=== PATIENT | female | born 1930 | race Two or more races ===

== ENCOUNTER 2020-04-24 11:45 | Inpatient (IN) | payer OTHER ==
[~2020-04-24] VITALS: Ht 167.6 cm; Wt 106.0 kg
[2020-04-24] MEDS: SOD CHL 0.9%/ KCL 20MEQ 1,000 ML IV SCH (04:20)
[2020-04-24] MEDS ORDERED: ACETAMINOPHEN 325 MG TAB PO ONE (12:15)
[2020-04-24 13:13] LABS: Basophils # (auto) 0 10 ^3/uL (0-0.2); Basophils % (auto) 0.3 % (0.0-2.0); Eosinophils # (auto) 0 10 ^3/uL (0-0.8); Hematocrit 35.1 % (36.0-46.0); Hemoglobin 11.7 g/dL (12.2-16.2); Lymphocytes # (auto) 0.3 10 ^3/uL (0.4-5.4); Lymphocytes % (auto) 5.8 % (10.0-50.0); Mean Corpuscular Hemoglobin 32.1 pg (28.0-32.0); Mean Corpuscular Hgb Conc. 33.4 g/dL (32.0-36.0); Mean Corpuscular Volume 96.2 fL (80.0-100.0); Monocytes # (auto) 0.6 10 ^3/uL (0-1.3); Monocytes % (auto) 11.7 % (0.0-12.0); Neutrophils # (auto) 4.3 10 ^3/uL (1.6-8.6); Neutrophils % (auto) 82.2 % (37.0-80.0); Platelet Count (auto) 143 10^3/uL (140-450); Red Blood Cells 3.65 10^6/uL (4.0-5.20); Red Cell Distribution Width 16.3 % (11.8-14.3); White Blood Cell 5.2 10^3/uL (4.4-10.8)
[2020-04-24 13:46] LABS: Alanine Aminotransferase 19 U/L (13-56); Albumin 2.9 g/dL (3.4-5.0); Anion Gap 8 (5-15); Aspartate Aminotransferase 33 U/L (15-37); BUN/Creatinine Ratio 19.4; Bilirubin, Total 0.5 mg/dL (0.2-1.0); Blood Urea Nitrogen 18 mg/dL (7-18); Calcium 8.1 mg/dL (8.5-10.1); Carbon Dioxide 27 mmol/L (21-32); Chloride 103 mmol/L (98-107); GFR African American 73 mL/min; GFR Non-African American 60 mL/min; Glucose 86 mg/dL (74-106); Potassium 3.4 mmol/L (3.5-5.1); Sodium 138 mmol/L (136-145); Total Protein 7.1 g/dL (6.4-8.2)
[2020-04-24 13:59] LABS: Alkaline Phosphatase 64 U/L (45-117); CRP High Sensitivity 9.65 mg/dL (< 0.3)
[2020-04-24] MEDS ORDERED: INFLUENZA QUAD 2020-2021 0.5 ML SYRG IM ONE (15:00)
[2020-04-24] MEDS ORDERED: DOXYCYCLINE 100MG/250ML 250 ML IV ONE (15:00)
[2020-04-24] MEDS ORDERED: DOCUSATE SOD 100 MG CAP PO PRN (15:00)
[2020-04-24] MEDS ORDERED: ONDANSETRON HCL 4 MG/2 ML VIAL IV PRN (15:00)
[2020-04-24] MEDS ORDERED: PNEUMOCOCCAL VACC POLYS 25 MCG/0.5 ML VIAL IM ONE (15:00)
[2020-04-24] MEDS ORDERED: NITROGLYCERIN 0.4 MG SL TAB SL PRN (15:00)
[2020-04-24] MEDS ORDERED: ACETAMINOPHEN 500 MG TAB PO PRN (15:00)
[2020-04-24] MEDS ORDERED: ACETAMINOPHEN 325 MG TAB PO PRN (15:00)
[2020-04-24] MEDS ORDERED: ZINC SULFATE 220mg CAP or TAB PO ONE (15:00)
[2020-04-24] MEDS ORDERED: DexAMETHasone SOD PHOS 10MG/1ML VIAL INJ IV ONE (15:00)
[2020-04-24] MEDS ORDERED: ALUM & MAG HYDROX-SIMETH LIQ(MAALOX) 30 ML PO PRN (15:00)
[2020-04-24] MEDS ORDERED: LORazepam 0.5 MG TAB PO PRN (15:00)
[2020-04-24] MEDS ORDERED: ASCORBIC ACID 500 MG TAB PO ONE (15:00)
[2020-04-24] MEDS ORDERED: MORPHINE SULF INJ 2 MG/ML SYRINGE 1ML IV PRN (15:00)
[2020-04-24 16:05] LABS: Cholesterol 159 mg/dL (< 200); LDL Cholesterol 89 mg/dL (< 100); Triglycerides 119 mg/dL (< 150)
[2020-04-24 16:10] LABS: HDL Cholesterol 50 mg/dL (40-59)
[2020-04-24] MEDS ORDERED: METHOTREXATE 2.5 MG TAB PO SCH (16:15)
[2020-04-24 16:55] LABS: Magnesium 2.5 mg/dL (1.6-2.6)
[2020-04-24] MEDS ORDERED: PROM1SOL2 PO (17:46)
[2020-04-24] MEDS ORDERED: AZIT250T9 PO (17:46)
[2020-04-24] MEDS ORDERED: ALBUAER3 IN (17:46)
[2020-04-24] MEDS ORDERED: LEUC10TA2 PO (17:46)
[2020-04-24] MEDS ORDERED: PRED20TA2 PO (17:46)
[2020-04-24] MEDS ORDERED: GABA300C10 PO (17:46)
[2020-04-24] MEDS ORDERED: METH2.5T PO (17:46)
[2020-04-24] MEDS ORDERED: PANT40TA2 PO (17:46)
[2020-04-24] MEDS ORDERED: OXYB5TAB61 PO (17:46)
[2020-04-24] MEDS ORDERED: FOLI1TAB6 PO (17:46)
[2020-04-24] MEDS ORDERED: FOLIC ACID 1 MG TAB PO ONE (18:00)
[2020-04-24] MEDS ORDERED: POTASSIUM CHL 20MEQ/100ML 100 ML IV ONE (18:15)
[2020-04-24] MEDS ORDERED: ENOXAPARIN SOD 40 MG/0.4 ML SYRINGE SC ONE (18:30)
[2020-04-24] MEDS: BUDESONIDE (INHALATION) 180 MCG IH IN SCH (20:18)
[2020-04-24] MEDS: ALBUTEROL SULF HFA 90MCG INH 200DOSE IN SCH (20:18)
[2020-04-24 20:58] VITALS: BP 122/67
[2020-04-24 22:00] VITALS: BP 122/67
[2020-04-24] MEDS: OXYBUTYNIN CHL 5 MG TAB PO SCH (22:23)
[2020-04-24] MEDS: GABAPENTIN 100 MG CAP PO SCH (22:24)
[2020-04-24] MEDS: DOXYCYCLINE 100MG/250ML 250 ML IV SCH (22:24)
[2020-04-24] MEDS: FAMOTIDINE (10MG/ML) 2ML VL IV SCH (22:24)
[2020-04-24] MEDS: METHOTREXATE 2.5 MG TAB PO SCH (22:25)
[2020-04-25 01:39] LABS: Urine Bacteria FEW /hpf (None Seen); Urine Blood TRACE /uL (Negative); Urine Hyaline Cast FEW /lpf (0 - 2); Urine Mucus MODERATE (None Seen); Urine Specific Gravity 1.033 (1.001-1.035); Urine WBC 10 /hpf (0 - 5)
[2020-04-25 01:41] LABS: Amphetamine Screen, Urine NEGATIVE (NEGATIVE); Barbiturate Scree,Urine NEGATIVE (NEGATIVE); Benzodiazephine Screen, Urine NEGATIVE (NEGATIVE); Cannabinoid Screen, Urine NEGATIVE (NEGATIVE); Cocaine Screen, Urine NEGATIVE (NEGATIVE); Opiate Scree,Urine NEGATIVE (NEGATIVE); Phencyclidine Screen, Urine NEGATIVE (NEGATIVE)
[2020-04-25 02:02] VITALS: BP 122/67
[2020-04-25] MEDS: SOD CHL 0.9%/ KCL 20MEQ 1,000 ML IV SCH (04:20)
[2020-04-25 05:53] VITALS: BP 108/61
[2020-04-25 06:28] LABS: Basophils # (auto) 0 10 ^3/uL (0-0.2); Eosinophils # (auto) 0 10 ^3/uL (0-0.8); Hematocrit 36.7 % (36.0-46.0); Hemoglobin 11.9 g/dL (12.2-16.2); Lymphocytes # (auto) 0.2 10 ^3/uL (0.4-5.4); Lymphocytes % (auto) 5.2 % (10.0-50.0); Mean Corpuscular Hemoglobin 31.9 pg (28.0-32.0); Mean Corpuscular Hgb Conc. 32.5 g/dL (32.0-36.0); Monocytes # (auto) 0.3 10 ^3/uL (0-1.3); Monocytes % (auto) 7.9 % (0.0-12.0); Neutrophils # (auto) 3.4 10 ^3/uL (1.6-8.6); Neutrophils % (auto) 86.9 % (37.0-80.0); Nucleated Red Blood Cells % 0.1 %; Platelet Count (auto) 130 10^3/uL (140-450); Red Blood Cells 3.75 10^6/uL (4.0-5.20); Red Cell Distribution Width 16.4 % (11.8-14.3); White Blood Cell 3.9 10^3/uL (4.4-10.8)
[2020-04-25] MEDS: GABAPENTIN 100 MG CAP PO SCH ×3 (06:30→21:55)
[2020-04-25] MEDS: LEVOTHYROXINE SODIUM 25 MCG TAB PO SCH (06:31)
[2020-04-25 06:48] LABS: Albumin 2.7 g/dL (3.4-5.0); Calcium 8.1 mg/dL (8.5-10.1); Potassium 3.6 mmol/L (3.5-5.1)
[2020-04-25 06:52] LABS: BUN/Creatinine Ratio 34.7; Bilirubin, Total 0.4 mg/dL (0.2-1.0)
[2020-04-25] MEDS: ALBUTEROL SULF HFA 90MCG INH 200DOSE IN SCH ×3 (07:18→22:01)
[2020-04-25] MEDS: BUDESONIDE (INHALATION) 180 MCG IH IN SCH ×2 (07:18→22:01)
--- NOTE | 2020-04-25 08:00 | NUR ---
Opening Shift Note Assumed care of patient, who is awake and alert. Patient crying and facial grimacing noted as well, patient states 10/10 chronic back pain. Will administer PRN pain medication as per order. Instructed on POC and to call for assist PRN, call light within reach.
[2020-04-25] MEDS: MORPHINE SULF INJ 2 MG/ML SYRINGE 1ML IV PRN ×2 (08:08→15:44)
[2020-04-25 09:00] VITALS: BP 108/57
[2020-04-25] MEDS: DexAMETHasone SOD PHOS 10MG/1ML VIAL INJ IV SCH (09:46)
[2020-04-25] MEDS: OXYBUTYNIN CHL 5 MG TAB PO SCH ×2 (09:47→21:53)
[2020-04-25] MEDS: ZINC SULFATE 220mg CAP or TAB PO SCH (09:47)
[2020-04-25] MEDS: FOLIC ACID 1 MG TAB PO SCH (09:47)
[2020-04-25] MEDS: DOXYCYCLINE 100MG/250ML 250 ML IV SCH ×2 (09:47→21:53)
[2020-04-25] MEDS: ASCORBIC ACID 1,000 MG TAB PO SCH (09:47)
[2020-04-25] MEDS: CHOLECALCIFEROL (VITD3) 2,000 UNIT CAP PO SCH (09:48)
--- NOTE | 2020-04-25 10:50 | NUR ---
Dr. Borrero at bed side
--- NOTE | 2020-04-25 11:31 | NUR ---
Pulmonary Consultation Dr. Lozano at [facility] side
[2020-04-25] MEDS ORDERED: REMDESIVIR PER PHARMACY IV SCH (11:45)
--- NOTE | 2020-04-25 12:10 | NUR ---
Gavin (son) updated of latest POC with patients permission and after PW provide. Per Gavin, " I agree with all the treatment options my mom has agreed to up to now, I would like to always get contacted for "big decisions".
[2020-04-25 13:00] VITALS: BP 143/64
[2020-04-25 17:00] VITALS: BP 110/49
[2020-04-25] MEDS ORDERED: REMDESIVIR 200 MG in NS 210ml LOADING DOSE ADULT IV ONE (17:00)
--- NOTE | 2020-04-25 19:15 | NUR ---
Remdesivir pre vs: bp:115/66, hr:63bpm,94% spo2 15min post: 114/64, hr:52bpm, 92%spo2 post : 106/58, hr: 52bpm, 93%spo2
--- NOTE | 2020-04-25 19:24 | NUR ---
Opening Shift Note Assumed care of patient, awake and alert. No S/S of distress/SOB or pain. Instructed on POC and to call for assistance PRN, will continue to monitor for changes Q1hr and PRN. Safety precautions in place bed is in lowest position and locked, bed rails 2x.
[2020-04-25] MEDS: FAMOTIDINE (10MG/ML) 2ML VL IV SCH (21:53)
[2020-04-25] MEDS: ENOXAPARIN SOD 40 MG/0.4 ML SYRINGE SC SCH (21:55)
[2020-04-25] MEDS: HYDROcodone-ACET 5/325MG TAB PO PRN (21:56)
[2020-04-25 22:00] VITALS: BP 111/52
[2020-04-26] VITALS (8 sets, daily range): BP systolic 94–120; BP diastolic 49–67
--- NOTE | 2020-04-26 01:45 | NUR ---
Convalescent Plasma Transfusing No s/s of distress or SOB, has no complaints. Will continue to monitor Q1 and PRN.
--- NOTE | 2020-04-26 03:40 | NUR ---
Convalescent Plasma Transfused At this time patient has no s/s of distress or SOB. Will continue to monitor Q1 and PRN.
[2020-04-26] MEDS: BUDESONIDE (INHALATION) 180 MCG IH IN SCH ×2 (06:57→22:09)
[2020-04-26] MEDS: ALBUTEROL SULF HFA 90MCG INH 200DOSE IN SCH ×3 (06:57→22:09)
[2020-04-26] MEDS: GABAPENTIN 100 MG CAP PO SCH ×3 (07:04→22:35)
[2020-04-26] MEDS: LEVOTHYROXINE SODIUM 25 MCG TAB PO SCH (07:04)
[2020-04-26] MEDS: FOLIC ACID 1 MG TAB PO SCH (11:00)
[2020-04-26] MEDS: ZINC SULFATE 220mg CAP or TAB PO SCH (11:00)
[2020-04-26] MEDS: DexAMETHasone SOD PHOS 10MG/1ML VIAL INJ IV SCH (11:00)
[2020-04-26] MEDS: DOXYCYCLINE 100MG/250ML 250 ML IV SCH ×2 (11:00→22:37)
[2020-04-26] MEDS: CHOLECALCIFEROL (VITD3) 2,000 UNIT CAP PO SCH (11:01)
[2020-04-26] MEDS: OXYBUTYNIN CHL 5 MG TAB PO SCH ×2 (11:01→22:35)
[2020-04-26] MEDS: ASCORBIC ACID 1,000 MG TAB PO SCH (11:01)
[2020-04-26] MEDS: HYDROcodone-ACET 5/325MG TAB PO PRN ×2 (13:14→19:59)
[2020-04-26] MEDS: REMDESIVIR 100mg in NS 230ml DAILYx4DAYS (NO VENT) IV SCH (17:09)
--- NOTE | 2020-04-26 19:50 | NUR ---
Opening Shift Note Assumed care of patient, awake and alert. No S/S of distress/SOB noted. Instructed on POC and to call for assist PRN. Bed is in lowest locked position with bed rails up x2 and call light is within reach of the patient.
[2020-04-26] MEDS: guaiFENesin 200 MG/10 ML UD PO PRN (19:59)
[2020-04-26] MEDS: ENOXAPARIN SOD 40 MG/0.4 ML SYRINGE SC SCH (22:34)
[2020-04-26] MEDS: FAMOTIDINE (10MG/ML) 2ML VL IV SCH (22:37)
[2020-04-27 05:00] VITALS: BP 108/60
[2020-04-27] MEDS: GABAPENTIN 100 MG CAP PO SCH ×3 (06:17→23:22)
[2020-04-27] MEDS: LEVOTHYROXINE SODIUM 25 MCG TAB PO SCH (06:43)
[2020-04-27 07:09] LABS: Potassium 4.4 mmol/L (3.5-5.1)
[2020-04-27 07:18] LABS: Albumin 2.4 g/dL (3.4-5.0); BUN/Creatinine Ratio 38.3; Bilirubin, Total 0.3 mg/dL (0.2-1.0); Calcium 8.3 mg/dL (8.5-10.1); Total Protein 6.2 g/dL (6.4-8.2)
[2020-04-27] MEDS: ALBUTEROL SULF HFA 90MCG INH 200DOSE IN SCH ×3 (07:23→23:06)
[2020-04-27] MEDS: BUDESONIDE (INHALATION) 180 MCG IH IN SCH ×2 (07:23→23:06)
[2020-04-27 09:00] VITALS: BP 132/58
[2020-04-27] MEDS: HYDROcodone-ACET 5/325MG TAB PO PRN (09:31)
[2020-04-27] MEDS: DexAMETHasone SOD PHOS 10MG/1ML VIAL INJ IV SCH (09:37)
[2020-04-27] MEDS: ASCORBIC ACID 1,000 MG TAB PO SCH (09:38)
[2020-04-27] MEDS: FOLIC ACID 1 MG TAB PO SCH (09:38)
[2020-04-27] MEDS: OXYBUTYNIN CHL 5 MG TAB PO SCH ×2 (09:38→23:22)
[2020-04-27] MEDS: ZINC SULFATE 220mg CAP or TAB PO SCH (10:02)
[2020-04-27] MEDS: DOXYCYCLINE 100MG/250ML 250 ML IV SCH ×2 (10:02→23:22)
[2020-04-27] MEDS: CHOLECALCIFEROL (VITD3) 2,000 UNIT CAP PO SCH (10:02)
--- NOTE | 2020-04-27 11:05 | NUR ---
Nutrition Assessment Notes Please refer to link for full assessment notes. Est Energy needs: 8800-5147 kcals (20-23 kcal/kgBW) Est Protein needs: 61-67 gms/day (1.0-1.1 gm/kgBW) Will continue to monitor and reassess prn. Addendum: 04/27/20 at [address] Amended: Links added.
[2020-04-27 13:00] VITALS: BP 119/59
[2020-04-27 16:44] VITALS: BP 114/64
[2020-04-27] MEDS: REMDESIVIR 100mg in NS 230ml DAILYx4DAYS (NO VENT) IV SCH (17:24)
[2020-04-27 22:00] VITALS: BP 111/20
[2020-04-27] MEDS: FAMOTIDINE (10MG/ML) 2ML VL IV SCH (23:21)
[2020-04-27] MEDS: ENOXAPARIN SOD 40 MG/0.4 ML SYRINGE SC SCH (23:23)
[2020-04-28 03:27] VITALS: BP 114/64
[2020-04-28 05:00] VITALS: BP 117/61
[2020-04-28] MEDS: ALBUTEROL SULF HFA 90MCG INH 200DOSE IN SCH ×3 (06:44→23:18)
[2020-04-28] MEDS: GABAPENTIN 100 MG CAP PO SCH ×3 (06:45→22:21)
[2020-04-28] MEDS: LEVOTHYROXINE SODIUM 25 MCG TAB PO SCH (06:45)
[2020-04-28] MEDS: BUDESONIDE (INHALATION) 180 MCG IH IN SCH ×2 (06:45→23:18)
--- NOTE | 2020-04-28 06:57 | NUR ---
closing note pt resting in semi fowlers with HOB at 30 degrees. no respiratory distress noted. pt is on 3Lnc. no c/o pain. endorsed care day shift RN.
[2020-04-28 08:02] LABS: Basophils # (auto) 0 10 ^3/uL (0-0.2); Basophils % (auto) 0.1 % (0.0-2.0); Eosinophils # (auto) 0 10 ^3/uL (0-0.8); Hematocrit 32.8 % (36.0-46.0); Hemoglobin 10.8 g/dL (12.2-16.2); Lymphocytes # (auto) 0.5 10 ^3/uL (0.4-5.4); Lymphocytes % (auto) 8.6 % (10.0-50.0); Mean Corpuscular Hemoglobin 31.5 pg (28.0-32.0); Mean Corpuscular Hgb Conc. 32.9 g/dL (32.0-36.0); Mean Corpuscular Volume 95.8 fL (80.0-100.0); Monocytes # (auto) 0.3 10 ^3/uL (0-1.3); Monocytes % (auto) 5.5 % (0.0-12.0); Neutrophils # (auto) 4.5 10 ^3/uL (1.6-8.6); Neutrophils % (auto) 85.8 % (37.0-80.0); Nucleated Red Blood Cells % 0.1 %; Platelet Count (auto) 176 10^3/uL (140-450); Red Blood Cells 3.43 10^6/uL (4.0-5.20); Red Cell Distribution Width 16.5 % (11.8-14.3); White Blood Cell 5.3 10^3/uL (4.4-10.8)
[2020-04-28 08:17] LABS: Albumin 2.4 g/dL (3.4-5.0); BUN/Creatinine Ratio 28.6; Calcium 8.3 mg/dL (8.5-10.1); Potassium 3.5 mmol/L (3.5-5.1)
[2020-04-28 08:24] LABS: Bilirubin, Total 0.4 mg/dL (0.2-1.0); Total Protein 6.3 g/dL (6.4-8.2)
[2020-04-28 09:00] VITALS: BP 122/54
[2020-04-28] MEDS: DexAMETHasone SOD PHOS 10MG/1ML VIAL INJ IV SCH (10:28)
[2020-04-28] MEDS: FOLIC ACID 1 MG TAB PO SCH (10:29)
[2020-04-28] MEDS: ASCORBIC ACID 1,000 MG TAB PO SCH (10:30)
[2020-04-28] MEDS: DOXYCYCLINE 100MG/250ML 250 ML IV SCH ×2 (10:30→22:21)
[2020-04-28] MEDS: OXYBUTYNIN CHL 5 MG TAB PO SCH ×2 (10:30→22:21)
[2020-04-28] MEDS: ZINC SULFATE 220mg CAP or TAB PO SCH (10:30)
[2020-04-28] MEDS: CHOLECALCIFEROL (VITD3) 2,000 UNIT CAP PO SCH (10:31)
[2020-04-28] MEDS: guaiFENesin 200 MG/10 ML UD PO PRN (11:48)
[2020-04-28 13:00] VITALS: BP 108/63
[2020-04-28] MEDS: HYDROcodone-ACET 5/325MG TAB PO PRN ×3 (14:08→23:44)
[2020-04-28 16:54] VITALS: BP 102/54
[2020-04-28] MEDS: REMDESIVIR 100mg in NS 230ml DAILYx4DAYS (NO VENT) IV SCH (17:13)
[2020-04-28 22:00] VITALS: BP 112/72
[2020-04-28] MEDS: FAMOTIDINE (10MG/ML) 2ML VL IV SCH (22:20)
[2020-04-28] MEDS: ENOXAPARIN SOD 40 MG/0.4 ML SYRINGE SC SCH (22:21)
[2020-04-29 05:00] VITALS: BP 117/67
[2020-04-29] MEDS: GABAPENTIN 100 MG CAP PO SCH ×3 (06:19→22:18)
[2020-04-29] MEDS: LEVOTHYROXINE SODIUM 25 MCG TAB PO SCH (06:20)
[2020-04-29] MEDS: BUDESONIDE (INHALATION) 180 MCG IH IN SCH ×2 (06:35→21:53)
[2020-04-29] MEDS: ALBUTEROL SULF HFA 90MCG INH 200DOSE IN SCH ×3 (06:35→21:53)
[2020-04-29] MEDS: HYDROcodone-ACET 5/325MG TAB PO PRN (07:00)
--- NOTE | 2020-04-29 07:02 | NUR ---
closing note pt is resting in left lateral position. no s/s of respiratory distress. endorsed care to day shift RN Alison.
[2020-04-29 09:00] VITALS: BP 98/54
[2020-04-29] MEDS: OXYBUTYNIN CHL 5 MG TAB PO SCH ×2 (10:31→22:18)
[2020-04-29] MEDS: DOXYCYCLINE 100MG/250ML 250 ML IV SCH (10:31)
[2020-04-29] MEDS: ZINC SULFATE 220mg CAP or TAB PO SCH (10:31)
[2020-04-29] MEDS: CHOLECALCIFEROL (VITD3) 2,000 UNIT CAP PO SCH (10:31)
[2020-04-29] MEDS: DexAMETHasone SOD PHOS 10MG/1ML VIAL INJ IV SCH (10:31)
[2020-04-29] MEDS: ASCORBIC ACID 1,000 MG TAB PO SCH (10:31)
[2020-04-29] MEDS: FOLIC ACID 1 MG TAB PO SCH (10:32)
[2020-04-29] MEDS ORDERED: THROAT LOZENGES(CEPASTAT) MT PRN (16:30)
[2020-04-29 17:00] VITALS: BP 96/50
[2020-04-29] MEDS: REMDESIVIR 100mg in NS 230ml DAILYx4DAYS (NO VENT) IV SCH (17:05)
[2020-04-29 22:00] VITALS: BP 125/65
[2020-04-29] MEDS: FAMOTIDINE (10MG/ML) 2ML VL IV SCH (22:17)
[2020-04-29] MEDS: ENOXAPARIN SOD 40 MG/0.4 ML SYRINGE SC SCH (22:18)
[2020-04-30 04:59] VITALS: BP 125/57
[2020-04-30] MEDS: LEVOTHYROXINE SODIUM 25 MCG TAB PO SCH (06:24)
[2020-04-30] MEDS: GABAPENTIN 100 MG CAP PO SCH ×3 (06:24→21:49)
[2020-04-30] MEDS: ALBUTEROL SULF HFA 90MCG INH 200DOSE IN SCH ×3 (06:42→22:00)
[2020-04-30] MEDS: BUDESONIDE (INHALATION) 180 MCG IH IN SCH ×2 (06:42→22:00)
--- NOTE | 2020-04-30 06:58 | NUR ---
closing note no c/o pain or discomfort. no respiratory distress noted. endorsed care to day shift RN Alison.
[2020-04-30 09:00] VITALS: BP 106/51
[2020-04-30] MEDS: DexAMETHasone SOD PHOS 10MG/1ML VIAL INJ IV SCH (10:19)
[2020-04-30] MEDS: CHOLECALCIFEROL (VITD3) 2,000 UNIT CAP PO SCH (10:20)
[2020-04-30] MEDS: FOLIC ACID 1 MG TAB PO SCH (10:20)
[2020-04-30] MEDS: ZINC SULFATE 220mg CAP or TAB PO SCH (10:20)
[2020-04-30] MEDS: ASCORBIC ACID 1,000 MG TAB PO SCH (10:20)
[2020-04-30] MEDS: OXYBUTYNIN CHL 5 MG TAB PO SCH ×2 (10:20→21:49)
[2020-04-30] MEDS ORDERED: NYSTATIN (MOUTH-THROAT) 500,000 UNITS/5 ML SUSP MT ONE (10:30)
--- NOTE | 2020-04-30 10:30 | NUR ---
DR GA AT BEDSIDE. PLACED PATIENT ON ROOM AIR WILL CONTINUE TO CHECK PULSE OX.
[2020-04-30] MEDS: HYDROcodone-ACET 5/325MG TAB PO PRN (10:51)
--- NOTE | 2020-04-30 11:00 | NUR ---
DENIES ANY SHORTNESS OF BREATH ON ROOM AIR BUT OXYGEN SATURATION DOWN TO 85% PLACED BACK ON 3 LITERS NASAL CANULA SATURATION 93%
--- NOTE | 2020-04-30 11:40 | NUR ---
Nutrition Followup Notes Wt: 62.1 kg Pt is positive for COVID in isolation. pt is currently on regular diet with poor PO of 25% x 4 per RN doc. pt with candidiasis Est Energy needs: 8016-0479 kcals (20-23 kcal/kgBW), Est Protein needs: 61-67 gms/day (1.0-1.1 gm/kgBW). Will continue to monitor and reassess prn LABS: BUN 20 H CA 8.3 L ALB 2.4 L GI: Pt had 2 BMs today per RN doc. BS: 20 low risk. Refer to wound assessment report for further details. PES: 1) Inadequate oral intake aeb pt ave PO intake of 46% over 2 days r/t pt with a poor appetite 2) Altered nutrition related lab values aeb elev RFT, hyperglycemia, hypocalcemia, hypoalbuminemia r/t current medical condition Comments Will continue to monitor PO status, skin status, pertinent labs and weight trends. Will f/u in 3-5 days 1) Consider ensure Enlive 1 carton BID as PO is low. 2) Continue current plan fo care
[2020-04-30 13:00] VITALS: BP 123/56
[2020-04-30] MEDS: guaiFENesin 200 MG/10 ML UD PO PRN (16:04)
[2020-04-30 17:00] VITALS: BP 122/49
[2020-04-30] MEDS: NYSTATIN (MOUTH-THROAT) 500,000 UNITS/5 ML SUSP MT SCH ×2 (18:57→21:49)
[2020-04-30] MEDS: FAMOTIDINE (10MG/ML) 2ML VL IV SCH (21:48)
[2020-04-30] MEDS: ENOXAPARIN SOD 40 MG/0.4 ML SYRINGE SC SCH (21:49)
[2020-04-30 22:00] VITALS: BP 109/62
[2020-05-01 03:50] VITALS: BP 109/62
[2020-05-01 05:00] VITALS: BP 121/61
[2020-05-01] MEDS: GABAPENTIN 100 MG CAP PO SCH ×3 (06:23→23:09)
[2020-05-01] MEDS: LEVOTHYROXINE SODIUM 25 MCG TAB PO SCH (06:23)
[2020-05-01] MEDS: NYSTATIN (MOUTH-THROAT) 500,000 UNITS/5 ML SUSP MT SCH ×4 (06:24→23:08)
[2020-05-01 06:26] LABS: Basophils # (auto) 0 10 ^3/uL (0-0.2); Eosinophils # (auto) 0 10 ^3/uL (0-0.8); Eosinophils % (auto) 0.9 % (0.0-7.0); Hemoglobin 10.3 g/dL (12.2-16.2); Lymphocytes # (auto) 0.5 10 ^3/uL (0.4-5.4); Lymphocytes % (auto) 10.3 % (10.0-50.0); Mean Corpuscular Hemoglobin 32.1 pg (28.0-32.0); Mean Corpuscular Hgb Conc. 33.3 g/dL (32.0-36.0); Mean Corpuscular Volume 96.2 fL (80.0-100.0); Monocytes # (auto) 0.3 10 ^3/uL (0-1.3); Monocytes % (auto) 5.5 % (0.0-12.0); Neutrophils # (auto) 4.3 10 ^3/uL (1.6-8.6); Neutrophils % (auto) 83.3 % (37.0-80.0); Platelet Count (auto) 160 10^3/uL (140-450); Red Blood Cells 3.23 10^6/uL (4.0-5.20); Red Cell Distribution Width 17.1 % (11.8-14.3); White Blood Cell 5.1 10^3/uL (4.4-10.8)
[2020-05-01 06:31] LABS: Potassium 3.9 mmol/L (3.5-5.1)
[2020-05-01 06:36] LABS: BUN/Creatinine Ratio 38.6; Magnesium 2.2 mg/dL (1.6-2.6)
--- NOTE | 2020-05-01 07:10 | NUR ---
ASSUMED CARE OF PATIENT ALERT AND AWAKE. PATIENT PLACED ON 15L OXIMIZER PER RT RECOMMENDATION. UPDATED PATIENT ON PLAN OF CARE AND TO CALL FOR ASSISTANCE IF NEEDED. BED LOCKED IN LOWEST POSITION, HOB ELEVATED AT LEAST 30 DEGREES AND CALL LIGHT IS WITHIN REACH. WILL CONTINUE TO MONITOR. Addendum: 05/01/20 at 0815 by MUNDO RANDALL RN RN SHOULD BE SPELLED "OXYMIZER"
--- NOTE | 2020-05-01 07:20 | NUR ---
closing note pt is resting in left lateral position. pt is on 5Lnc. no c/o pain or discomfort. no respiratory distress. endorsed care to day shift RN.
[2020-05-01] MEDS: ALBUTEROL SULF HFA 90MCG INH 200DOSE IN SCH ×3 (07:44→22:29)
[2020-05-01] MEDS: BUDESONIDE (INHALATION) 180 MCG IH IN SCH ×2 (07:44→22:29)
[2020-05-01 09:30] VITALS: BP 96/56
--- NOTE | 2020-05-01 09:53 | NUR ---
Assessment Patient is an 89-year-old female unable to speak to patient. Assessment was completed with patient son Gavin . Prior to admission patient lived home with her daughter Delicia and functioned with assistance. Patient has a hospital bed for home use. Patient will return home to her prior living arrangements post discharge and family will transport her home. Advised Gavin for patient to follow up with Primary doctor upon . Informed Gavin he has the right to participate in all discharge planning. Gavin verbalized understanding. Addendum: 05/01/20 at 1001 by RIVERA SESAY Amended: Links added.
[2020-05-01] MEDS: DexAMETHasone SOD PHOS 10MG/1ML VIAL INJ IV SCH (10:57)
[2020-05-01] MEDS: FOLIC ACID 1 MG TAB PO SCH (10:57)
[2020-05-01] MEDS: ZINC SULFATE 220mg CAP or TAB PO SCH (10:57)
[2020-05-01] MEDS: CHOLECALCIFEROL (VITD3) 2,000 UNIT CAP PO SCH (10:58)
[2020-05-01] MEDS: OXYBUTYNIN CHL 5 MG TAB PO SCH ×2 (10:58→23:08)
[2020-05-01] MEDS: ASCORBIC ACID 1,000 MG TAB PO SCH (10:58)
[2020-05-01 13:01] VITALS: BP 111/53
--- NOTE | 2020-05-01 14:00 | NUR ---
DR GA AT BEDSIDE. UPDATED DR. GA ON PATIENT CURRENTLY ON 15L OXYMIZER. NO NEW ORDERS AT THIS TIME. CONTINUE CARE.
[2020-05-01 16:41] VITALS: BP 108/54
--- NOTE | 2020-05-01 19:12 | NUR ---
ORDERS RECEIVED FROM DR ADAM TO OBTAIN ABG'S WITH OXYGEN FOR THIS PATIENT.
--- NOTE | 2020-05-01 19:18 | NUR ---
ENDORSED CARE TO NOC SHIFT RN
[2020-05-01] MEDS: HYDROcodone-ACET 5/325MG TAB PO PRN (20:17)
[2020-05-01 22:00] VITALS: BP 127/53
[2020-05-01] MEDS ORDERED: FUROSEMIDE 20 MG/2 ML VIAL IV ONE (22:45)
[2020-05-01] MEDS: FAMOTIDINE (10MG/ML) 2ML VL IV SCH (23:07)
[2020-05-01] MEDS: METHOTREXATE 2.5 MG TAB PO SCH (23:08)
[2020-05-01] MEDS: ENOXAPARIN SOD 40 MG/0.4 ML SYRINGE SC SCH (23:09)
[2020-05-02 05:00] VITALS: BP 122/68
[2020-05-02] MEDS: NYSTATIN (MOUTH-THROAT) 500,000 UNITS/5 ML SUSP MT SCH ×4 (06:39→21:59)
[2020-05-02] MEDS: LEVOTHYROXINE SODIUM 25 MCG TAB PO SCH (06:39)
[2020-05-02] MEDS: GABAPENTIN 100 MG CAP PO SCH ×3 (06:39→22:00)
[2020-05-02] MEDS: ALBUTEROL SULF HFA 90MCG INH 200DOSE IN SCH ×3 (06:40→22:10)
--- NOTE | 2020-05-02 07:00 | NUR ---
closing note pt is on 13 L oxyimzer. no c/o of pain or discomfort. no respiratory distress at this time. endorsed care to day shift RN.
--- NOTE | 2020-05-02 08:00 | NUR ---
Opening Shift Note Assumed care of patient, awake, alert and oriented X4. No S/S of distress/SOB or pain. O2 @ 13 LPM via Oxymizer with sats @ 91%. Tele# 37, sinus bradycardia @ 57 bpm. IV to right wrist 22 gauge, patent and saline locked. Instructed on POC and to call for assist PRN, verbalized understanding. Bed locked, in lowest position, call light within reach, will continue to monitor for changes Q1hr and PRN.
[2020-05-02 09:00] VITALS: BP 102/54
[2020-05-02] MEDS: OXYBUTYNIN CHL 5 MG TAB PO SCH ×2 (11:39→22:00)
[2020-05-02] MEDS: ASCORBIC ACID 1,000 MG TAB PO SCH (11:39)
[2020-05-02] MEDS: DexAMETHasone SOD PHOS 10MG/1ML VIAL INJ IV SCH (11:39)
[2020-05-02] MEDS: FOLIC ACID 1 MG TAB PO SCH (11:39)
[2020-05-02] MEDS: ZINC SULFATE 220mg CAP or TAB PO SCH (11:39)
[2020-05-02] MEDS: CHOLECALCIFEROL (VITD3) 2,000 UNIT CAP PO SCH (11:40)
--- NOTE | 2020-05-02 12:20 | NUR ---
ROUNDS Dr Borrero at bedside for rounds, new orders received and followed through. Patient updated on plan of care, verbalized understanding.
[2020-05-02 13:00] VITALS: BP 113/43
[2020-05-02] MEDS: BUDESONIDE (INHALATION) 180 MCG IH IN SCH ×2 (15:00→22:10)
--- NOTE | 2020-05-02 15:30 | NUR ---
O2 TITRATION O2 titrated from 13 LPM non-rebreather mask to 5 LPM via Oxymizer with humidification with stats @ 92%. Per Dr Borrero, keep O2 sats > 88%.
[2020-05-02 17:00] VITALS: BP 105/52
--- NOTE | 2020-05-02 19:33 | NUR ---
Care endorsed to FARHAD Esquivel, night nurse
--- NOTE | 2020-05-02 19:34 | NUR ---
Opening Shift Note Assumed care of patient. Patient is awake and alert, oriented X 4. No S/S of respiratory distress noted. Respirations are regular and non-labored. Patient denies pain at this time. Safety precautions in place. Bed is in lowest position and locked, bed rails 2x,call light is within reach. Instructed on POC and to call for assistance PRN. Will continue to monitor for changes Q1hr and PRN.
[2020-05-02 20:00] VITALS: BP 115/51
[2020-05-02] MEDS: FAMOTIDINE (10MG/ML) 2ML VL IV SCH (21:59)
[2020-05-02 22:00] VITALS: BP 115/51
[2020-05-02] MEDS: ENOXAPARIN SOD 40 MG/0.4 ML SYRINGE SC SCH (22:00)
[2020-05-03 05:00] VITALS: BP 119/73
[2020-05-03] MEDS: ALBUTEROL SULF HFA 90MCG INH 200DOSE IN SCH (06:08)
[2020-05-03] MEDS: BUDESONIDE (INHALATION) 180 MCG IH IN SCH ×2 (06:08→22:09)
[2020-05-03] MEDS: GABAPENTIN 100 MG CAP PO SCH ×3 (06:38→22:24)
[2020-05-03] MEDS: NYSTATIN (MOUTH-THROAT) 500,000 UNITS/5 ML SUSP MT SCH ×4 (06:38→22:24)
[2020-05-03] MEDS: LEVOTHYROXINE SODIUM 25 MCG TAB PO SCH (06:47)
--- NOTE | 2020-05-03 08:00 | NUR ---
Opening Shift Note Assumed care of patient, awake and alert. With S/S of distress/SOB but no complaints of pain. With O2 via oxymizer at 6lpm/nasal cannula continuously administered. Instructed on POC and to call for assist PRN, will continue to monitor for changes Q1hr and PRN.
[2020-05-03 08:33] VITALS: BP 102/52
[2020-05-03] MEDS: FOLIC ACID 1 MG TAB PO SCH (10:00)
[2020-05-03] MEDS: DexAMETHasone SOD PHOS 10MG/1ML VIAL INJ IV SCH (10:00)
[2020-05-03] MEDS: ZINC SULFATE 220mg CAP or TAB PO SCH (10:00)
[2020-05-03] MEDS: ASCORBIC ACID 1,000 MG TAB PO SCH (10:00)
[2020-05-03] MEDS: OXYBUTYNIN CHL 5 MG TAB PO SCH ×2 (10:00→22:24)
--- NOTE | 2020-05-03 12:31 | NUR ---
Nutrition Followup Notes Wt: 60.0 kg Pt is positive for COVID in isolation. pt is currently on regular diet with good PO of 83% x 4 per RN doc. Est Energy needs: 4250-7807 kcals (20-23 kcal/kgBW), Est Protein needs: 61-67 gms/day (1.0-1.1 gm/kgBW). Will continue to monitor and reassess prn LABS: CA 8.0 L ALB 2.4 L GI: Pt had 1 BM on 05/02 per RN doc. BS: 20 low risk. Refer to wound assessment report for further details. PES: 1) Inadequate oral intake aeb pt ave PO intake of 46% over 2 days r/t pt with a poor appetite 2) Altered nutrition related lab values aeb elev RFT, hyperglycemia, hypocalcemia, hypoalbuminemia r/t current medical condition Comments Will continue to monitor PO status, skin status, pertinent labs and weight trends. Will f/u in 3-5 days 1) Consider ensure Enlive 1 carton BID as PO is low. (No longer applicable, pt with good PO) 2) Continue current plan of care
[2020-05-03] MEDS: CHOLECALCIFEROL (VITD3) 2,000 UNIT CAP PO SCH (12:58)
[2020-05-03 13:22] VITALS: BP 100/60
[2020-05-03 16:34] VITALS: BP 109/62
--- NOTE | 2020-05-03 19:25 | NUR ---
Opening Shift Note Assumed care of patient. Patient is awake, alert, and oriented X 4. No S/S of respiratory distress noted. Respirations are regular and non-labored on 6 lpm NC. Patient denies pain at this time. Bed is in lowest position and locked, bed rails 2x, call light is within reach. Instructed on POC and to call for assistance as needed. Will continue to monitor for changes Q1hr and PRN.
[2020-05-03 20:00] VITALS: BP 102/50
[2020-05-03 22:00] VITALS: BP 102/50
[2020-05-03] MEDS: ALBUTEROL SULF HFA 90MCG INH 200DOSE IN PRN (22:09)
[2020-05-03] MEDS: FAMOTIDINE (10MG/ML) 2ML VL IV SCH (22:23)
[2020-05-03] MEDS: ENOXAPARIN SOD 40 MG/0.4 ML SYRINGE SC SCH (22:25)
[2020-05-04 05:00] VITALS: BP 103/69
[2020-05-04 05:53] LABS: Urine Bacteria FEW /hpf (None Seen); Urine Blood Negative /uL (Negative); Urine Mucus FEW (None Seen); Urine Specific Gravity 1.027 (1.001-1.035); Urine WBC 28 /hpf (0 - 5)
[2020-05-04] MEDS: HYDROcodone-ACET 5/325MG TAB PO PRN (06:11)
[2020-05-04] MEDS: GABAPENTIN 100 MG CAP PO SCH ×3 (06:34→21:57)
[2020-05-04] MEDS: NYSTATIN (MOUTH-THROAT) 500,000 UNITS/5 ML SUSP MT SCH ×4 (06:34→21:56)
[2020-05-04] MEDS: LEVOTHYROXINE SODIUM 25 MCG TAB PO SCH (06:34)
--- NOTE | 2020-05-04 07:11 | NUR ---
Opening Shift Note Assumed care of patient. Patient is awake, alert, and oriented X 4. No S/S of respiratory distress noted. Respirations are regular and non-labored on 6 lpm NC. Bed locked n lowest position, HOB elevated at least 30 degrees and call light is within reach. Instructed on POC and to call for assistance as needed. Will continue to monitor for changes Q1hr and PRN.
[2020-05-04 07:41] LABS: Basophils # (auto) 0 10 ^3/uL (0-0.2); Basophils % (auto) 0.5 % (0.0-2.0); Eosinophils # (auto) 0 10 ^3/uL (0-0.8); Hematocrit 32.8 % (36.0-46.0); Hemoglobin 10.5 g/dL (12.2-16.2); Lymphocytes # (auto) 0.5 10 ^3/uL (0.4-5.4); Mean Corpuscular Hemoglobin 31.1 pg (28.0-32.0); Monocytes # (auto) 0.3 10 ^3/uL (0-1.3); Monocytes % (auto) 4.9 % (0.0-12.0); Neutrophils # (auto) 5.2 10 ^3/uL (1.6-8.6); Neutrophils % (auto) 86.6 % (37.0-80.0); Platelet Count (auto) 160 10^3/uL (140-450); Red Blood Cells 3.38 10^6/uL (4.0-5.20); Red Cell Distribution Width 17.4 % (11.8-14.3)
[2020-05-04 08:03] LABS: BUN/Creatinine Ratio 40.4; Calcium 8.4 mg/dL (8.5-10.1); Magnesium 2.6 mg/dL (1.6-2.6); Potassium 3.9 mmol/L (3.5-5.1)
[2020-05-04 09:00] VITALS: BP 99/65
[2020-05-04] MEDS: BUDESONIDE (INHALATION) 180 MCG IH IN SCH ×2 (09:44→22:44)
[2020-05-04] MEDS: ALBUTEROL SULF HFA 90MCG INH 200DOSE IN PRN ×2 (09:44→22:44)
[2020-05-04] MEDS: FOLIC ACID 1 MG TAB PO SCH (10:30)
[2020-05-04] MEDS: CHOLECALCIFEROL (VITD3) 2,000 UNIT CAP PO SCH (10:30)
[2020-05-04] MEDS: OXYBUTYNIN CHL 5 MG TAB PO SCH ×2 (10:30→21:56)
[2020-05-04] MEDS: DexAMETHasone SOD PHOS 10MG/1ML VIAL INJ IV SCH (10:30)
[2020-05-04] MEDS: ZINC SULFATE 220mg CAP or TAB PO SCH (10:30)
[2020-05-04] MEDS: ASCORBIC ACID 1,000 MG TAB PO SCH (10:30)
[2020-05-04 13:00] VITALS: BP 112/61
[2020-05-04 17:00] VITALS: BP 120/55
--- NOTE | 2020-05-04 18:34 | NUR ---
DR GA AT BEDSIDE. UPDATED DR GA ON CURRENT AMOUNT OF OXYGEN THE PATIENT IS RECEIVING VIA NASAL CANULA. NO NEW ORDERS AT THIS TIME CONTINUE CARE. Addendum: 05/04/20 at 1835 by MUNDO RANDALL RN RN THIS NOTE WAS FOR 929 THIS MORNING.
--- NOTE | 2020-05-04 19:04 | NUR ---
ENDORSED CARE TO NOC SHIFT RN
--- NOTE | 2020-05-04 19:33 | NUR ---
Opening Shift Note Assumed care of patient. Patient is awake, alert, and oriented X 4. No S/S of respiratory distress noted. Respirations are regular and non-labored on 5 lpm NC. Patient denies pain at this time. Bed is in lowest position and locked, bed rails 2x, HOB at 30*, call light is within reach. Instructed on POC and to call for assistance as needed. Will continue to monitor for changes Q1hr and PRN.
[2020-05-04 20:00] VITALS: BP 105/52
[2020-05-04] MEDS: SULFAMETHOX W/TRIMETH(800/160MG) DS TAB PO SCH (21:56)
[2020-05-04] MEDS: FAMOTIDINE (10MG/ML) 2ML VL IV SCH (21:56)
[2020-05-04] MEDS: ENOXAPARIN SOD 40 MG/0.4 ML SYRINGE SC SCH (21:57)
[2020-05-04 22:00] VITALS: BP 105/52
[2020-05-05 05:00] VITALS: BP 101/52
[2020-05-05] MEDS: NYSTATIN (MOUTH-THROAT) 500,000 UNITS/5 ML SUSP MT SCH ×4 (05:51→22:00)
[2020-05-05] MEDS: GABAPENTIN 100 MG CAP PO SCH ×3 (05:51→22:00)
[2020-05-05] MEDS: HYDROcodone-ACET 5/325MG TAB PO PRN ×2 (05:52→13:11)
--- NOTE | 2020-05-05 06:11 | NUR ---
IV removal/insertion IV R WRIST DC'd due to leaking with sterile technique. Catheter fully intact. Pressure dressing applied to site. Patient tolerated procedure well. New IV access obtained via clean sterile technique by inserting 22 gauge catheter at R FOREARM. IV secured properly. No trauma to site. Patient tolerated well.
[2020-05-05] MEDS: LEVOTHYROXINE SODIUM 25 MCG TAB PO SCH (07:08)
--- NOTE | 2020-05-05 07:18 | NUR ---
Opening Shift Note Assumed care of patient. Patient is awake, alert, and oriented X 4. No S/S of respiratory distress noted. Respirations are regular and non-labored on 4 lpm NC. Bed locked In lowest position, HOB elevated at least 30 degrees and call light is within reach. Instructed on POC and to call for assistance as needed. Will continue to monitor for changes Q1hr and PRN.
[2020-05-05 08:00] VITALS: BP 98/56
[2020-05-05] MEDS: BUDESONIDE (INHALATION) 180 MCG IH IN SCH ×2 (08:10→21:31)
[2020-05-05 08:59] VITALS: BP 98/56
[2020-05-05] MEDS: SULFAMETHOX W/TRIMETH(800/160MG) DS TAB PO SCH ×2 (10:03→22:00)
[2020-05-05] MEDS: FOLIC ACID 1 MG TAB PO SCH (10:03)
[2020-05-05] MEDS: DexAMETHasone SOD PHOS 10MG/1ML VIAL INJ IV SCH (10:03)
[2020-05-05] MEDS: ZINC SULFATE 220mg CAP or TAB PO SCH (10:03)
[2020-05-05] MEDS: ASCORBIC ACID 1,000 MG TAB PO SCH (10:04)
[2020-05-05] MEDS: OXYBUTYNIN CHL 5 MG TAB PO SCH ×2 (10:04→22:00)
[2020-05-05] MEDS: CHOLECALCIFEROL (VITD3) 2,000 UNIT CAP PO SCH (10:04)
[2020-05-05] MEDS ORDERED: ACETAMINOPHEN 500 MG TAB PO PRN (12:15)
[2020-05-05 12:44] VITALS: BP 96/51
[2020-05-05 16:59] VITALS: BP 102/62
--- NOTE | 2020-05-05 19:22 | NUR ---
ENDORSED CARE TO NOC SHIFT RN
--- NOTE | 2020-05-05 19:25 | NUR ---
Opening Shift Note Assumed care of patient. Patient was asleep upon entry to room but is easily woken by touch and name. Patient is alert and oriented x4. Patient is currently on 4 L NC with no S/S of distress/SOB or pain. Bed is locked in lowest position with call light within reach. Instructed on POC and to call for assist PRN, will continue to monitor for changes Q1hr and PRN.
[2020-05-05] MEDS: ALBUTEROL SULF HFA 90MCG INH 200DOSE IN PRN (21:31)
[2020-05-05 22:00] VITALS: BP 111/60
[2020-05-05] MEDS: FAMOTIDINE (10MG/ML) 2ML VL IV SCH (22:00)
[2020-05-05] MEDS: ENOXAPARIN SOD 40 MG/0.4 ML SYRINGE SC SCH (22:00)
[2020-05-06 05:09] VITALS: BP 97/46
[2020-05-06 05:38] VITALS: BP 97/46
[2020-05-06] MEDS: GABAPENTIN 100 MG CAP PO SCH ×3 (06:00→22:38)
[2020-05-06] MEDS: NYSTATIN (MOUTH-THROAT) 500,000 UNITS/5 ML SUSP MT SCH ×4 (06:00→22:00)
[2020-05-06] MEDS: LEVOTHYROXINE SODIUM 25 MCG TAB PO SCH (07:00)
[2020-05-06] MEDS: BUDESONIDE (INHALATION) 180 MCG IH IN SCH ×2 (07:11→22:00)
--- NOTE | 2020-05-06 08:00 | NUR ---
Opening Shift Note Assumed care of patient, awake and alert. Patient is hard of hearing. No S/S of distress/SOB or pain. Patient is on 3L NC per RT at bedside, patient SPO2 at 94%. Instructed on POC and to call for assist PRN, will continue to monitor for changes Q1hr and PRN. Bed is locked and in lowest position. Call light within reach.
[2020-05-06 09:00] VITALS: BP 118/60
[2020-05-06] MEDS: DexAMETHasone SOD PHOS 10MG/1ML VIAL INJ IV SCH (09:40)
[2020-05-06] MEDS: ZINC SULFATE 220mg CAP or TAB PO SCH (09:42)
[2020-05-06] MEDS: FOLIC ACID 1 MG TAB PO SCH (09:42)
[2020-05-06] MEDS: OXYBUTYNIN CHL 5 MG TAB PO SCH ×2 (09:43→22:38)
[2020-05-06] MEDS: SULFAMETHOX W/TRIMETH(800/160MG) DS TAB PO SCH ×2 (09:43→22:38)
[2020-05-06] MEDS: ASCORBIC ACID 1,000 MG TAB PO SCH (09:43)
[2020-05-06] MEDS: CHOLECALCIFEROL (VITD3) 2,000 UNIT CAP PO SCH (09:44)
[2020-05-06] MEDS: HYDROcodone-ACET 5/325MG TAB PO PRN (09:44)
--- NOTE | 2020-05-06 11:50 | NUR ---
Nutrition Followup Notes Wt: 61.0kg Pt is positive for COVID in isolation. pt is currently on regular soft diet with inadequte PO of avg 50% x 2 days per RN doc. Est Energy needs: 8324-1574 kcals (20-23 kcal/kgBW), Est Protein needs: 61-67 gms/day (1.0-1.1 gm/kgBW). Will continue to monitor and reassess prn LABS: BUN 21 H CA 8.4 L GLU 107 H ALB 2.4 L GI: Pt had 1 BM today per RN doc. BS: 21 low risk. Refer to wound assessment report for further details. PES: 1) Inadequate oral intake aeb pt ave PO intake of 46% over 2 days r/t pt with a poor appetite 2) Altered nutrition related lab values aeb elev RFT, hyperglycemia, hypocalcemia, hypoalbuminemia r/t current medical condition Comments Will continue to monitor PO status, skin status, pertinent labs and weight trends. Will f/u in 3-5 days 1) Consider ensure Enlive 1 carton BID as PO is low. (No longer applicable, pt with good PO) 2) Continue current plan of care
[2020-05-06 13:00] VITALS: BP 79/45
[2020-05-06] MEDS: ALBUTEROL SULF HFA 90MCG INH 200DOSE IN PRN ×2 (14:33→23:27)
--- NOTE | 2020-05-06 17:11 | NUR ---
PATIENT REFUSED PT. Addendum: 05/06/20 at 1711 by FITZ MORRISON PTT Amended: Links added.
[2020-05-06 17:47] VITALS: BP 110/55
--- NOTE | 2020-05-06 19:30 | NUR ---
Opening Shift Note Assumed care of patient, awake and alert. Patient is currently on 3L NC with an oxygen saturation of 97% with no S/S of distress/SOB or pain. Bed is locked in lowest position with call light within reach. Instructed on POC and to call for assist PRN, will continue to monitor for changes Q1hr and PRN.
[2020-05-06 22:00] VITALS: BP 98/40
[2020-05-06] MEDS: ENOXAPARIN SOD 40 MG/0.4 ML SYRINGE SC SCH (22:00)
--- NOTE | 2020-05-06 22:00 | NUR ---
MEDICATION REFUSED Patient is refusing the Mycostatin because she states that it sanchez her mouth when she uses it. Patient has been educated about the purpose of the purpose and benefits of the medication. Patient still refusing the medication.
[2020-05-06] MEDS: FAMOTIDINE (10MG/ML) 2ML VL IV SCH (22:37)
[2020-05-07 05:00] VITALS: BP 110/50
--- NOTE | 2020-05-07 05:35 | NUR ---
SKIN ASSESSMENT Patient reported feeling sacral pain. Upon assessment, the patient has circular blanchable redness located at the sacrum. Will initiate skin care plan and will turn the patient to alleviate the pressure points on her sacrum.
[2020-05-07] MEDS: NYSTATIN (MOUTH-THROAT) 500,000 UNITS/5 ML SUSP MT SCH ×6 (06:00→22:08)
[2020-05-07] MEDS: GABAPENTIN 100 MG CAP PO SCH ×3 (06:00→22:07)
[2020-05-07] MEDS: LEVOTHYROXINE SODIUM 25 MCG TAB PO SCH (07:00)
--- NOTE | 2020-05-07 07:00 | NUR ---
OPENING SHIFT NOTE RECEIVED REPORT ON THE PATIENT. AWAKE LYING IN BED. PATIENT SHOWS NO SIGNS OF DISTRESS AT THIS TIME. DISCUSSED THE PLAN OF CARE WITH THE PATIENT BED IN LOWEST POSITION, SIDE RAILS UP X2, AND THE CALL LIGHT IS WITHIN REACH.
[2020-05-07 09:00] VITALS: BP 108/61
[2020-05-07] MEDS: BUDESONIDE (INHALATION) 180 MCG IH IN SCH ×2 (10:00→21:00)
[2020-05-07] MEDS: DexAMETHasone SOD PHOS 10MG/1ML VIAL INJ IV SCH (10:36)
[2020-05-07] MEDS: CHOLECALCIFEROL (VITD3) 2,000 UNIT CAP PO SCH (10:37)
[2020-05-07] MEDS: ASCORBIC ACID 1,000 MG TAB PO SCH (10:37)
[2020-05-07] MEDS: FOLIC ACID 1 MG TAB PO SCH (10:37)
[2020-05-07] MEDS: SULFAMETHOX W/TRIMETH(800/160MG) DS TAB PO SCH ×2 (10:37→22:07)
[2020-05-07] MEDS: ZINC SULFATE 220mg CAP or TAB PO SCH (10:37)
[2020-05-07] MEDS: OXYBUTYNIN CHL 5 MG TAB PO SCH ×2 (10:37→22:08)
[2020-05-07 14:29] VITALS: BP 112/69
[2020-05-07] MEDS: ALBUTEROL SULF HFA 90MCG INH 200DOSE IN PRN (16:13)
[2020-05-07 17:16] VITALS: BP 117/68
--- NOTE | 2020-05-07 19:30 | NUR ---
Opening Shift Note Assumed care of patient, awake and alert. No S/S of distress/SOB or pain. Insructed on POC and to callfor assist PRN, will continue to monitor for changes Q1hr and PRN. Fall and safety precautions in place. Call light within reach.
[2020-05-07 22:00] VITALS: BP 114/64
[2020-05-07] MEDS: FAMOTIDINE (10MG/ML) 2ML VL IV SCH (22:08)
[2020-05-07] MEDS: ENOXAPARIN SOD 40 MG/0.4 ML SYRINGE SC SCH (22:08)
[2020-05-08] MEDS: ALBUTEROL SULF HFA 90MCG INH 200DOSE IN PRN ×2 (01:38→08:40)
[2020-05-08 05:00] VITALS: BP 116/55
[2020-05-08] MEDS: NYSTATIN (MOUTH-THROAT) 500,000 UNITS/5 ML SUSP MT SCH ×3 (05:14→18:00)
[2020-05-08] MEDS: GABAPENTIN 100 MG CAP PO SCH ×2 (05:14→14:10)
[2020-05-08] MEDS: LEVOTHYROXINE SODIUM 25 MCG TAB PO SCH (05:15)
--- NOTE | 2020-05-08 07:30 | NUR ---
ASSUMED CARE OF PATIENT AWAKE AND ALERT. RESPIRATIONS EVEN AND UNLABORED AT THIS TIME. NO NO SIGNS OR SYMPTOMS OF DISTRESS AT THIS TIME. UPDATED PATIENT ON PLAN OF CARE. INSTRUCTED TO CALL FOR ASSISTANCE WHEN NEEDED. BED LOCKED IN LOWEST POSITION, HOB ELEVATED AT LEAST 30 DEGREES AND CALL LIGHT IS WITHIN REACH.
[2020-05-08] MEDS: BUDESONIDE (INHALATION) 180 MCG IH IN SCH (08:40)
[2020-05-08 08:59] VITALS: BP 117/66
[2020-05-08] MEDS: FOLIC ACID 1 MG TAB PO SCH (10:03)
[2020-05-08] MEDS: SULFAMETHOX W/TRIMETH(800/160MG) DS TAB PO SCH (10:03)
[2020-05-08] MEDS: ZINC SULFATE 220mg CAP or TAB PO SCH (10:03)
[2020-05-08] MEDS: ASCORBIC ACID 1,000 MG TAB PO SCH (10:04)
[2020-05-08] MEDS: OXYBUTYNIN CHL 5 MG TAB PO SCH (10:04)
[2020-05-08] MEDS: CHOLECALCIFEROL (VITD3) 2,000 UNIT CAP PO SCH (10:04)
[2020-05-08] MEDS: DexAMETHasone SOD PHOS 10MG/1ML VIAL INJ IV SCH (12:01)
--- NOTE | 2020-05-08 12:50 | NUR ---
DR GA AT BEDSIDE. DR GA STATED THAT IF BIN FILLER IS ABLE TO SET UP HOME O2 THAT THIS PATIENT MAY BE DISCHARGED. NO NEW ORDERS AT THIS TIME. CONTINUE CARE.
[2020-05-08 12:59] VITALS: BP 109/53
--- NOTE | 2020-05-08 16:04 | NUR ---
SPOKE WITH TRINA FROM ENVIRONMENTAL GEOLOGIST. SHE INFORMED ME THAT HOME O2 CANNOT BE SET UP FOR THIS PATIENT UNTIL THE PRIMARY PHYSICIAN SIGNS THE NECESSARY PAPERWORK.
[2020-05-08 16:29] VITALS: BP 109/53
--- NOTE | 2020-05-08 16:30 | NUR ---
D/C Planning Regarding social service consult for home oxygen at 2l/min. Faxed clinical information to [facility] this morning at 10:00am requesting for portable oxygen to be deliver to front lobby and concentrate oxygen to home. Per Rivka Poon order has been received and they will process order. Placed a follow up called at 13:00 to Rivka for an update. Per [facility] are not delivery medical equipment to the hospital due to COVID they will deliver medical equipment to patient home address; [address] [facility]. Placed follow up called to [facility] Fish spoke to Jaden who informed me they will deliver medical equipment by 18:30 today and they have contact patient daughter Delicia . Placed call to patient daughter Delicia advising her [facility] will deliver medical equipment home and for her to bring portable oxygen to hospital when transporting patient home. Delicia verbalize understanding d/c plan. Informed FARHAD Gonzalez.
[2020-05-08 17:00] VITALS: BP 104/64
--- NOTE | 2020-05-08 19:17 | NUR ---
ENDORSED CARE TO NOC SHIFT RN
--- NOTE | 2020-05-08 20:15 | NUR ---
DISCHARGE Discharge instructions given as ordered. Encourage to follow up with PMD as instructed. All questions and concerns addressed. Patient verbalized understanding. IV removed with catheter intact by day shift RN, pressure dressing applied. Telemetry unit returned to ICU by day shift RN. Patient taken to vehicle via wheelchair with all personal belongings, accompanied by staff. All proper covid precautions taken during transfer. No distress noted at time of departure.
== END 2020-05-08 20:15 | disposition home or self-care (01) | DRG 177 ==
LOC: ER 11:45 → TELE 11:46 → TELE-CENTR 20:58
PROVIDERS: ADMIT Hospitalist; ATTEND Internal Medicine Geriatric Medicine
PROC: XW033E5 Introduction of Remdesivir Anti-infective into Peripheral Vein, Percutaneous Approach, New Technology Group 5 (ICD-10-PCS; principal; 2020-04-25)
PROC: XW13325 Transfusion of Convalescent Plasma (Nonautologous) into Peripheral Vein, Percutaneous Approach, New Technology Group 5 (ICD-10-PCS; 2020-04-26)
DX: U07.1 COVID-19 (principal); J12.89 Other viral pneumonia; J96.01 Acute respiratory failure with hypoxia; E43 Unspecified severe protein-calorie malnutrition; B37.0 Candidal stomatitis; J98.11 Atelectasis; N39.0 Urinary tract infection, site not specified; J44.0 Chronic obstructive pulmonary disease with (acute) lower respiratory infection; E87.6 Hypokalemia; D64.9 Anemia, unspecified; M06.9 Rheumatoid arthritis, unspecified; E03.9 Hypothyroidism, unspecified; M19.90 Unspecified osteoarthritis, unspecified site; N39.3 Stress incontinence (female) (male); Z83.3 Family history of diabetes mellitus; Z87.891 Personal history of nicotine dependence; Z79.899 Other long term (current) drug therapy; Z79.51 Long term (current) use of inhaled steroids; Z28.21 Immunization not carried out because of patient refusal; Z68.37 Body mass index [BMI] 37.0-37.9, adult
CPT/HCPCS: 36415; 36600; 71045; 71275; 80048; 80053; 80061; 80307; 81001; 82728; 82805; 83036; 83605; 83615; 83735; 84443; 84484; 85025; 85379; 86141; 86850; 86900; 86901; 87086; 87088; 87186; 87426; 93005; 93970; 94640; 97110; 97116; 97530; G0378; J1100; J3480; J3490

== ENCOUNTER 2020-05-17 07:27 | Emergency (ER) | payer OTHER ==
[~2020-05-17] VITALS: Ht 157.5 cm; Wt 61.7 kg
[~2020-05-17 07:27] MED LIST: ALBUAER3 IN; AZIT250T9 PO; FOLI1TAB6 PO; GABA300C10 PO; LEUC10TA2 PO; METH2.5T PO; OXYB5TAB61 PO; PANT40TA2 PO; PRED20TA2 PO; PROM1SOL2 PO
[2020-05-17] MEDS ORDERED: SODIUM BICARBONATE 8.4% INJ 50ML SYRINGE IV ONE (07:28)
[2020-05-17] MEDS ORDERED: EPINEPHrine HCL 1 MG/10 ML SYRG IV ONE (07:28)
[2020-05-17] MEDS ORDERED: ATROPINE SULF 1 MG/10ml SYR IV ONE (07:28)
[2020-05-17] MEDS ORDERED: ONDANSETRON HCL 4 MG/2 ML VIAL ONE (08:26)
[2020-05-17 08:48] LABS: Mean Corpuscular Hemoglobin 32.4 pg (28.0-32.0)
[2020-05-17 08:55] LABS: Hematocrit 48.1 % (36.0-46.0); Hemoglobin 15.9 g/dL (12.2-16.2); Platelet Count (auto) 238 10^3/uL (140-450); Red Blood Cells 4.91 10^6/uL (4.0-5.20); Red Cell Distribution Width 18.2 % (11.8-14.3); White Blood Cell 5.5 10^3/uL (4.4-10.8)
[2020-05-17 08:56] LABS: Albumin 3.1 g/dL (3.4-5.0); Calcium 9.8 mg/dL (8.5-10.1); Potassium 4.1 mmol/L (3.5-5.1)
[2020-05-17 09:00] LABS: Basophils % (manual) 0 (0.0-2.0); Blast Cells 0; Eosinophils % (manual) 0 (0-7); Myelocytes % 0; Promyelocytes % 0; Reactive Lymphocytes 0
[2020-05-17 09:03] LABS: BUN/Creatinine Ratio 24.9; Bilirubin, Total 0.5 mg/dL (0.2-1.0); Total Protein 7.4 g/dL (6.4-8.2)
[2020-05-17 09:49] LABS: Band Neutrophils % (manual) 20; Lymphocytes % (manual) 8 (10.0-50.0); Metamyelocytes % 1; Monocytes % (manual) 11 (0-12)
[2020-05-17 09:52] LABS: INR 1.52 (0.9-1.15); Partial Thromboplastin Time 22.7 sec (23.0-31.2)
[2020-05-17] MEDS ORDERED: ONDANSETRON HCL 4 MG/2 ML VIAL IV ONE (10:00)
[2020-05-17 14:15] VITALS: BP 81/39
== END 2020-05-17 14:19 ==
LOC: EDBD 07:27 → ER 07:27
DX: U07.1 COVID-19 (principal); I46.9 Cardiac arrest, cause unspecified; J12.89 Other viral pneumonia; R41.82 Altered mental status, unspecified; E11.9 Type 2 diabetes mellitus without complications; R06.89 Other abnormalities of breathing
CPT/HCPCS: 31500; 36415; 70450; 71045; 74176; 80053; 84484; 85007; 85027; 85379; 85610; 85730; 92950; 96374; 99285; J0171; J2405